=== PATIENT | female | born 1970 | race Caucasian/White ===

== ENCOUNTER 2021-04-02 16:55 | Observation (INO) ==
[2021-04-02] MEDS ORDERED: Nitroglycerin 0.4 MG TAB.SUBL SL PRN (17:42)
[2021-04-02] MEDS ORDERED: Isovue-370 500 ML BOTTLE IVP ONE (17:42)
[2021-04-02 18:03] LABS: Basophils % 0.1 %; Hematocrit 44.9 % (35.3-44.9); Hemoglobin 14.6 g/dL (11.5-15.4); Immature Granulocytes % 0.2 % (0-4); Lymphocytes # 2.2 K/mcL (0.6-4.6); Lymphocytes % 23.3 %; Mean Corpuscular HGB Conc 32.5 g/dL (31.6-35.5); Mean Corpuscular Hemoglobin 30.4 pg (28.0-33.3); Mean Corpuscular Volume 93.5 fL (83.0-100.0); Mean Platelet Volume 10.6 fL (9.4-12.4); Monocytes # 0.4 K/mcL (0.0-1.3); Monocytes % 4.8 %; Neutrophils # 6.6 K/mcL (1.6-8.9); Platelet Count 193 K/mcL (140-400); Red Cell Distribution Width 15.3 % (11.5-14.5); Segmented Neutrophils % 71.6 %; White Blood Count 9.2 K/mcL (4.3-11.1)
[2021-04-02 18:15] LABS: Prothrombin Time 10.9 Seconds (9.4-12.1)
[2021-04-02 18:17] LABS: Alanine Aminotransferase 18 Units/L (7-52); Albumin 4.1 g/dL (3.5-5.7); Albumin/Globulin Ratio 1.4 (1.1-2.2); Alkaline Phosphatase 139 Units/L (34-104); Aspartate Amino Transferase 17 Units/L (13-39); BUN/Creatinine Ratio 6 (6-26); Bilirubin,Indirect 0.3 mg/dL (0.0-1.0); Bilirubin,Total 0.3 mg/dL (0.3-1.0); Blood Urea Nitrogen 4 mg/dL (6-20); Calcium 9.2 mg/dL (8.6-10.3); Carbon Dioxide 27 mEq/L (23-29); Chloride 100 mEq/L (98-107); Globulin 2.9 g/dL (2.4-3.5); Glucose 98 mg/dL (70-105); Lipase 22 Units/L (11-82); Osmolality,Calculated 281 (280-300); Potassium 3.8 mEq/L (3.5-5.1); Sodium 137 mEq/L (136-145); Troponin I < 0.03 ng/mL (< 0.04); eGFR For African Americans > 60 (> 60); eGFR For Non-African Americans > 60 (> 60)
[2021-04-02 18:18] LABS: Activated Partial Thrombo Time 40.3 Seconds (26.0-36.0)
[2021-04-02] MEDS ORDERED: *HR* Labetalol 20 MG/4 ML SYRINGE IVP ONE ×2 (20:10→20:49)
[2021-04-02] MEDS ORDERED: Ketorolac 30 MG/ML VIAL IVP ONE (22:02)
[2021-04-02] MEDS: niCARdipine 20 MG/200 ML MLS IVC SCH (22:53)
[2021-04-02] MEDS ORDERED: Naloxone 0.4 MG/ML INJ IVP PRN (23:22)
[2021-04-02] MEDS ORDERED: Ondansetron 4 MG/2 ML VIAL IVP PRN (23:22)
[2021-04-02] MEDS ORDERED: Acetaminophen 325 MG TABLET PO PRN (23:22)
[2021-04-03 00:25] LABS: Influenza A PCR Negative (Negative); Influenza B PCR Negative (Negative); Resp. Syncytial Virus PCR Negative (Negative)
[2021-04-03 00:26] LABS: SARS-CoV-2 by PCR (In House) Negative (Negative)
[2021-04-03] MEDS ORDERED: Aspirin 325 MG TABLET PO ONE (01:35)
[2021-04-03] MEDS: Morphine Sulfate 2 MG/ML SYRINGE IVP PRN ×4 (01:45→19:08)
[2021-04-03 02:25] LABS: Hematocrit 46.7 % (35.3-44.9); Hemoglobin 15.1 g/dL (11.5-15.4); Mean Corpuscular HGB Conc 32.3 g/dL (31.6-35.5); Mean Corpuscular Hemoglobin 30.1 pg (28.0-33.3); Mean Platelet Volume 11.4 fL (9.4-12.4); Platelet Count 183 K/mcL (140-400); Red Blood Count 5.02 M/mcL (3.82-4.97); Red Cell Distribution Width 15.7 % (11.5-14.5); White Blood Count 7.4 K/mcL (4.3-11.1)
[2021-04-03 02:42] LABS: BUN/Creatinine Ratio 7 (6-26); Blood Urea Nitrogen 4 mg/dL (6-20); Calcium 8.8 mg/dL (8.6-10.3); Carbon Dioxide 23 mEq/L (23-29); Chloride 99 mEq/L (98-107); Glucose 97 mg/dL (70-105); Osmolality,Calculated 275 (280-300); Potassium 3.3 mEq/L (3.5-5.1); Sodium 134 mEq/L (136-145); eGFR For African Americans > 60 (> 60); eGFR For Non-African Americans > 60 (> 60)
[2021-04-03] MEDS: niCARdipine 20 MG/200 ML MLS IVC SCH ×6 (03:19→21:15)
[2021-04-03 04:57] LABS: Bilirubin,Urine Negative (Negative); Blood,Urine Negative (Negative); Clarity,Urine Clear (Clear); Color,Urine Colorless (Yellow); Glucose,Urine (UA) Normal (Normal); Ketones,Urine Negative (Negative); Leukocyte Esterase,Urine Negative (Negative); Nitrite,Urine Negative (Negative); PH,Urine 6.5 pH Units (5.0-8.0); Protein,Urine Negative (Neg-Trace); Specific Gravity,Urine 1.024 (1.010-1.025); Urobilinogen,Urine Normal (Normal)
[2021-04-03 05:16] LABS: Amphetamine Screen,Urine Negative ng/mL (Cutoff=1000); Barbiturate Screen,Urine Positive ng/mL (Cutoff=200); Benzodiazepines Screen,Urine Negative ng/mL (Cutoff=200); Cannabinoid Screen,Urine Positive ng/mL (Cutoff = 50); Cocaine Screen,Urine Negative ng/mL (Cutoff= 300); Opiate Screen,Urine Positive ng/mL (Cutoff=300); Phencyclidine Screen,Urine Negative ng/mL (Cutoff=25)
[2021-04-03] MEDS ORDERED: clonazePAM 1 MG TABLET PO PRN (12:21)
[2021-04-03] MEDS ORDERED: Acetaminophen/Butalbital/CaffeineTABLET PO PRN (12:21)
[2021-04-03] MEDS ORDERED: amLODIPine 5 MG TABLET PO SCH (12:30)
[2021-04-03] MEDS: Metoprolol XL (24 HR) Succ 25 MG TAB.ER.24H PO SCH (13:11)
[2021-04-03] MEDS: Gabapentin 100 MG CAPSULE PO SCH ×2 (14:32→20:27)
[2021-04-03] MEDS: hydroCHLOROthiazide 25 MG TABLET PO SCH (16:59)
[2021-04-03] MEDS: Venlafaxine XR (24 HR) 150 MG CAP.ER.24H PO SCH (18:08)
[2021-04-03] MEDS ORDERED: PHENobarbitaL 32.4 MG TABLET PO SCH (21:00)
[2021-04-03] MEDS ORDERED: traZODone 50 MG TABLET PO SCH (21:00)
[2021-04-04] MEDS: Morphine Sulfate 2 MG/ML SYRINGE IVP PRN ×2 (00:10→04:56)
[2021-04-04 05:18] LABS: BUN/Creatinine Ratio 13 (6-26); Blood Urea Nitrogen 9 mg/dL (6-20); Calcium 8.8 mg/dL (8.6-10.3); Carbon Dioxide 26 mEq/L (23-29); Chloride 103 mEq/L (98-107); Glucose 100 mg/dL (70-105); Osmolality,Calculated 281 (280-300); Potassium 4.1 mEq/L (3.5-5.1); Sodium 136 mEq/L (136-145); eGFR For African Americans > 60 (> 60); eGFR For Non-African Americans > 60 (> 60)
[2021-04-04] MEDS: niCARdipine 20 MG/200 ML MLS IVC SCH (06:34)
[2021-04-04] MEDS: hydroCHLOROthiazide 25 MG TABLET PO SCH (08:37)
[2021-04-04] MEDS: Gabapentin 100 MG CAPSULE PO SCH ×2 (08:37→13:55)
[2021-04-04] MEDS: Venlafaxine XR (24 HR) 150 MG CAP.ER.24H PO SCH (08:37)
[2021-04-04] MEDS: Metoprolol XL (24 HR) Succ 25 MG TAB.ER.24H PO SCH (08:38)
[2021-04-04] MEDS ORDERED: amLODIPine 5 MG TABLET PO SCH (10:15)
[2021-04-04 16:17] VITALS: O2SAT 96
[2021-04-04 17:37] VITALS: BP 156/100; PULSE 88; TEMP 98.5
== END 2021-04-04 17:35 | disposition home or self-care (01) ==
LOC: 2NNU 16:55 → EMEROOARM 16:55 → 2NNU 04-03 00:19
PROVIDERS: ADMIT Student in an Organized Health Care Education/Training Program; ATTEND Student in an Organized Health Care Education/Training Program